=== PATIENT | male | born 1995 | race Caucasian/White ===

== ENCOUNTER 2017-10-21 22:32 | Emergency (ER) | payer OTHER ==
[~2017-10-21] VITALS: Ht 198.1 cm; Wt 96.4 kg
[2017-10-21 22:39] VITALS: BP 125/77
[2017-10-22] MEDS ORDERED: LIDOCAINE-MPF 1%, 5ML INFIL ONE
[2017-10-22] MEDS ORDERED: LIDOCAINE-MPF 1%, 5ML ONE
== END 2017-10-22 01:04 | disposition home or self-care (01) ==
LOC: ED 23:59
DX: S91.012A Laceration without foreign body, left ankle, initial encounter (principal); X58.XXXA Exposure to other specified factors, initial encounter; Y93.89 Activity, other specified; Y99.8 Other external cause status; Y92.328 Other athletic field as the place of occurrence of the external cause
CPT/HCPCS: 12011; 99284